=== PATIENT | male | born 1945 | race Caucasian/White ===

== ENCOUNTER 2022-10-16 08:32 | Emergency (ER) | payer OTHER ==
[~2022-10-16] VITALS: Ht 190.5 cm; Wt 113.4 kg
[2022-10-16] MEDS ORDERED: TIZA4 PO (12:06)
[2022-10-16] MEDS ORDERED: Mobic7.5 MG PO (12:06)
== END 2022-10-16 12:21 | disposition home or self-care (01) ==
LOC: ER 08:32
DX: M54.50 Low back pain, unspecified (principal); G89.29 Other chronic pain; I48.91 Unspecified atrial fibrillation; I10 Essential (primary) hypertension
CPT/HCPCS: 72100; A9270

== ENCOUNTER 2025-06-25 06:53 | Emergency (ER) | payer OTHER ==
[~2025-06-25] VITALS: Ht 188 cm; Wt 120.2 kg
[~2025-06-25 06:53] MED LIST: Mobic7.5 MG PO; TIZA4 PO
[2025-06-25 07:01] VITALS: BP 152/85
[2025-06-25] MEDS ORDERED: ATEN50 PO (07:06)
[2025-06-25] MEDS ORDERED: Amiodarone HCl200 MG PO (07:07)
[2025-06-25] MEDS ORDERED: LISI20 PO (07:07)
[2025-06-25 07:23] LABS: BASOPHILS ABSOLUTE AUTO 0.11 K/mm3 (0.00-0.23); BASOPHILS PERCENT AUTO 1 % (0-2); EOSINOPHILS ABSOLUTE AUTO 0.31 K/mm3 (0.00-0.68); EOSINOPHILS PERCENT AUTO 4 % (0-6); Hematocrit 40.6 % (37.0-53.0); Hemoglobin 13.7 g/dL (13.5-17.5); IMMATURE GRAN ABSOLUTE AUTO 0.02 K/mm3 (0.00-0.10); IMMATURE GRAN PERCENT AUTO 0 % (0-1); LYMPHOCYTES ABSOLUTE AUTO 0.93 K/mm3 (0.84-5.20); LYMPHOCYTES PERCENT AUTO 11 % (21-46); MONOCYTES ABSOLUTE AUTO 0.44 K/mm3 (0.16-1.47); MONOCYTES PERCENT AUTO 5 % (4-13); Mean Corpuscular HGB Conc 33.7 g/dL (31.5-36.5); Mean Corpuscular Volume 103 fL (80-100); NEUTROPHILS ABSOLUTE AUTO 6.37 K/mm3 (1.96-9.15); NEUTROPHILS PERCENT AUTO 78 % (41-73); NRBC ABSOLUTE 0.00 K/mm3 (0.00-0.02); NRBC Auto 0.0 /100 WBC (0.0-0.2); Platelet Count 183 K/mm3 (150-400); RDW Coefficient Variation 12.9 % (11.7-14.2); RDW Standard Deviation 49.0 fL (35.1-46.3)
[2025-06-25] MEDS ORDERED: Lidocaine 2% Jelly Uro-Jet UR ONE (07:30)
[2025-06-25 07:56] LABS: Alanine Aminotransfer (ALT/SGP 23.0 U/L (12-78); Albumin, Blood 3.4 g/dL (3.4-5.0); Albumin/Globulin Ratio 0.9 (0.8-1.8); Anion Gap 9.0 mmol/L (3-11); Aspartate Aminotrans (AST/SGOT 20.0 U/L (12-37); Bilirubin, Total 0.8 mg/dL (0.1-1.0); Blood Urea Nitrogen 29.0 mg/dL (8-24); CO2, Blood 25.0 mmol/L (21-32); Calcium, Blood 9.0 mg/dL (8.5-10.1); Chloride, Blood 108.0 mmol/L (98-108); Creatinine, Blood 1.54 mg/dL (0.60-1.20); Globulin, Blood 3.6 g/dL (2.2-4.0); Glucose, Blood 171.0 mg/dL (70-99); Potassium, Blood 4.0 mmol/L (3.5-5.5); Sodium, Blood 138.0 mmol/L (136-145); Total Protein, Blood 7.0 g/dL (6.4-8.2)
[2025-06-25 08:12] LABS: Source, Urine Condom Cath
[2025-06-25 08:18] LABS: Bilirubin, Urine Neg (Neg); Color, Urine Red (P-Yellow); Glucose Qualitative, Urine Neg (Neg); Ketones, Urine Neg (Neg); Leukocyte Esterase, Urine Neg (Neg); Protein, Urine 4+ (Neg); Specific Gravity, Urine 1.015 (1.003-1.022); Urobilinogen, Urine NORM (Normal)
[2025-06-25 08:26] LABS: Red Blood Cells, Urine TNTC /hpf (0-2); White Blood Cells, Urine Not Seen /hpf (0-5)
== END 2025-06-25 10:30 | disposition home or self-care (01) ==
LOC: ER 06:53
PROVIDERS: Emergency Medicine
DX: R31.0 Gross hematuria (principal); I10 Essential (primary) hypertension; I48.91 Unspecified atrial fibrillation; Z79.899 Other long term (current) drug therapy
CPT/HCPCS: 51700; 51798; 80053; 81001; 85025; 99283-25; A9270